=== PATIENT | male | born 1950 | race Caucasian/White ===

== ENCOUNTER 2016-10-23 09:23 | Day surgery (SDC) | payer BC ==
[2016-10-18 13:49] VITALS: BMI 29.7
[~2016-10-23 09:23] MED LIST: LACTATED RINGERS 1,000 ML IV SCH
[2016-10-23 09:45] VITALS: RESP 16; TEMP 97.1
[2016-10-23] MEDS ORDERED: LIDOCAINE 1% 20 ML VIAL (10MG/ML) FOR IV START INTRADERMA ONE (09:49)
[2016-10-23] MEDS ORDERED: PROPOFOL 10 MG/ML 20 ML VIAL IV ONE (10:19)
[2016-10-23] MEDS ORDERED: fentaNYL (PF) 50 MCG/ML 2 ML AMP ONE (10:19)
[2016-10-23] MEDS ORDERED: MIDAZOLAM 2 MG/2 ML VIAL ONE (10:19)
[2016-10-23 10:45] VITALS: PULSE 65
--- NOTE | 2016-10-23 10:51 | P.PCN ---
Date of Procedure: 10/23/16 Procedure(s) Performed: Procedure: Colonoscopy. Preoperative diagnosis: Screening for neoplasia, patient has history of polyps. Postoperative diagnosis: Exam within normal limits. Preparation: HalfLytely prep. Sedation: Was provided by anesthesia. Brief clinical history: The patient is a 66-year-old male who is scheduled for this evaluation for screening for neoplasia because of history of polyps. His last exam was around 6 years. He has no abdominal complaints, bleeding or anemia. Procedure: With the patient on his left lateral decubitus position and after informed consent and adequate sedation, the perianal area was inspected and it did not show any fissures or fistulas. There were no masses felt on digital rectal examination. The Olympus CFQ 160L video colonoscope was then inserted in the rectum in the usual fashion and advanced to the cecum. The mucosa appeared healthy. There may have been a small diverticular orifice in the distal sigmoid but there were no diverticulitis, polyps or cancer. I retroflexed endoscope in the rectum before the endoscope was withdrawn. The patient tolerated the procedure well. Plan: The patient was reassured. Discussed dietary measures. With the history of polyps, I recommended a repeat exam in 5 years. He will follow-up with you as planned.
[2016-10-23 11:02] VITALS: BP 121/61
== END 2016-10-23 11:27 | disposition home or self-care (01) ==
LOC: ORWHC2ENDO 09:23
DX: Z12.11 Encounter for screening for malignant neoplasm of colon (principal); Z86.010 Personal history of colon polyps; Z79.1 Long term (current) use of non-steroidal anti-inflammatories (NSAID); Z79.899 Other long term (current) drug therapy
CPT/HCPCS: J2250; J3010; J2704; G0105

== ENCOUNTER → 2022-10-04 | Day surgery (SDC) | payer MEDICARE, BC ==
[2022-10-02 14:27] VITALS: BMI 29.7
[~2022-10-04] MED LIST changes: +BALANCED SALT IRRIG SOLN COMB2 15 ML IRRIG.SOLN IRRIGATION ONE; +EPINEPHrine (PF) 0.3 ML in BALANCED SALT IRRIG SOLN COMB2 500 ML IRRIGATION ONE; +HYALURONATE SODIUM INTRAOCULAR 1 EACH SYRINGE (12MG/ML) INTRAOCULA ONE; +LIDOCAINE 1% (10MG/ML) FOR IV START INTRADERMA PRN; +LIDOCAINE 1% (PF) 10MG/ML VIAL MISCELLANE ONE; +MIDAZOLAM 2 MG/2 ML VIAL ONE; +TETRACAINE 0.5% OPHTH (PF) DROPS 4 ML BTL OP PRN; +fentaNYL (PF) 50 MCG/ML 2 ML AMP ONE
[2022-10-04] MEDS: CYCLOPENTOLATE 1% OPHTH SOLN 2 ML BTL OP PRN ×3 (08:12→08:24)
[2022-10-04] MEDS: PHENYLEPHRINE 2.5% OPHTH DRP 2ML OP PRN ×3 (08:15→08:27)
[2022-10-04 08:20] VITALS: TEMP 97.8
[2022-10-04] MEDS: TIMOLOL 0.5% OPHTH DROPS 5 ML BTL OP PRN ×2 (08:35→08:54)
[2022-10-04] MEDS: MOXIFLOXACIN HCL 0.5% DROPS 3 ML BTL OP PRN ×2 (08:35→08:54)
--- NOTE | 2022-10-04 09:18 | P.OP ---
Date of Procedure: 10/04/22 Preoperative Diagnosis: NS & CS Postoperative Diagnosis: same Procedure(s) Performed: PIOL< OD Implants: MX60E 16.50 Anesthesia: MAC Surgeon: Cabrera Barron Pathology: none sent Condition: stable Disposition: same day Indications for Procedure: blurry vision Operative Findings: no complications
[2022-10-04 10:02] VITALS: RESP 18
[2022-10-04 10:03] VITALS: BP 128/76; PULSE 69
--- NOTE | 2022-10-04 13:39 | OP ---
OPERATIVE REPORT DATE OF SERVICE : 10/04/2022 PREOPERATIVE DIAGNOSIS: Nuclear sclerosis, and cortical sclerosis. POSTOPERATIVE DIAGNOSIS: Nuclear sclerosis, and cortical sclerosis. OPERATION: Phacoemulsification of cataract and interocular lens implant of the right eye. ESTIMATED BLOOD LOSS: Zero. SPECIMEN TAKEN: None. NARRATIVE: After obtaining the appropriate consent, the patient was brought to the operating room where the patient was placed under cardiac monitoring and prepped and draped in the usual sterile manner. At the 11 o'clock position, a 15-degree super sharp blade was used to create a paracentesis followed by instillation of 1% Xylocaine MPF 50:50 mix with BSS into the anterior chamber. This was followed by Amvisc viscoelastic to stabilize the anterior chamber. At the 9 o'clock position a self-sealing corneal flap incision was created using 2.8 mm jennifer keratome. A cystotome was used to initiate a continuous tear capsulorrhexis which was completed with the Utrata forceps. A Binkhorst cannula was used to hydrodissect the lens nucleus followed by hydrodelineation. Phacoemulsification of the lens was performed utilizing phacochop in 10 seconds at 12% power. The remaining cortical material was removed using the irrigation aspiration mode followed by additional 1% Xylocaine MPF into the anterior chamber followed by viscoelastic to stabilize the capsular bag. A [employer] MX60E 16.5 diopters posterior chamber lens was placed into the capsular bag without difficulty. The remaining viscoelastic material was removed from the anterior chamber with the irrigation/aspiration. Balanced salt solution was used to normalize the intraocular pressure. The incision was checked for watertight integrity. The patient then received 2 drops of 0.5% timolol followed by 2 drops Vigamox, was lightly patched and shielded in the usual manner. There were no complications from the procedure. The patient tolerated the procedure well and was returned to recovery in good condition. MMODL / IJN: [id number] /
== END | disposition home or self-care (01) ==
LOC: OR 07:55
PROVIDERS: ATTEND Ophthalmology
DX: H25.11 Age-related nuclear cataract, right eye (principal); H25.011 Cortical age-related cataract, right eye; F10.20 Alcohol dependence, uncomplicated; Z87.891 Personal history of nicotine dependence; Z98.890 Other specified postprocedural states; Z83.511 Family history of glaucoma; Z83.518 Family history of other specified eye disorder; Z79.2 Long term (current) use of antibiotics; Z79.52 Long term (current) use of systemic steroids
CPT/HCPCS: 66984; V2632; J2250; J0171; J3010; J2001

== ENCOUNTER → 2022-10-25 | Day surgery (SDC) | payer MEDICARE, BC ==
[~2022-10-25] MED LIST changes: +BALANCED SALT IRRIG SOLN COMB2 15 ML IRRIG.SOLN INTRAOCULA ONE; -BALANCED SALT IRRIG SOLN COMB2 15 ML IRRIG.SOLN IRRIGATION ONE; +DUOVISC KIT (GREEN BOX) INTRAOCULA ONE; -HYALURONATE SODIUM INTRAOCULAR 1 EACH SYRINGE (12MG/ML) INTRAOCULA ONE; -LACTATED RINGERS 1,000 ML IV SCH; -LIDOCAINE 1% (10MG/ML) FOR IV START INTRADERMA PRN; +MOXIFLOXACIN HCL 0.5% DROPS 3 ML BTL OP PRN; +TIMOLOL 0.5% OPHTH DROPS 5 ML BTL OP PRN
[2022-10-25] MEDS: CYCLOPENTOLATE 1% OPHTH SOLN 2 ML BTL OP PRN ×3 (07:26→07:39)
[2022-10-25] MEDS: PHENYLEPHRINE 2.5% OPHTH DRP 2ML OP PRN ×3 (07:29→07:42)
[2022-10-25] MEDS: LACTATED RINGERS 1,000 ML IV SCH ×2 (07:41→08:01)
[2022-10-25 07:50] VITALS: TEMP 98
--- NOTE | 2022-10-25 08:30 | P.OP ---
Date of Procedure: 10/25/22 Preoperative Diagnosis: NS & CS Postoperative Diagnosis: same Procedure(s) Performed: PIOL, OS Implants: MX60E 18.00 Anesthesia: MAC Surgeon: Cabrera Barron Pathology: none sent Condition: stable Disposition: same day Indications for Procedure: blurry vision Operative Findings: No complications
[2022-10-25 09:19] VITALS: BP 128/74; PULSE 65; RESP 18
--- NOTE | 2022-10-25 14:19 | OP ---
OPERATIVE REPORT DATE OF SERVICE : 10/25/2022 PREOPERATIVE DIAGNOSIS: Nuclear sclerosis, cortical sclerosis, left eye. POSTOPERATIVE DIAGNOSIS: Nuclear sclerosis, cortical sclerosis, left eye. PROCEDURE PERFORMED: Phacoemulsification of cataract and intraocular lens implant of the left eye. ESTIMATED BLOOD LOSS: Zero. SPECIMEN TAKEN: None. NARRATIVE: After obtaining the appropriate consent, the patient was brought to the operating room where the patient was placed under cardiac monitoring and prepped and draped in the usual sterile manner. At the 5 o'clock position, a 15-degree super sharp blade was used to create a paracentesis followed by instillation of 1% Xylocaine MPF 50:50 mix with BSS into the anterior chamber. This was followed by DuoVisc viscoelastic to stabilize the anterior chamber. At the 3 o'clock position a self-sealing corneal flap incision was created using 2.8 mm jennifer keratome. A cystotome was used to initiate a continuous tear capsulorrhexis which was completed with the Utrata forceps. A Binkhorst cannula was used to hydrodissect the lens nucleus followed by hydrodelineation. Phacoemulsification of the lens was performed utilizing phacochop in 11.29 seconds at 13% power. The remaining cortical material was removed using the irrigation aspiration mode followed by additional 1% Xylocaine MPF into the anterior chamber followed by viscoelastic to stabilize the capsular bag. A [employer] Lomb MX60E 18 diopters posterior chamber lens was placed into the capsular bag without difficulty. The remaining viscoelastic material was removed from the anterior chamber with the irrigation/aspiration. Balanced salt solution was used to normalize the intraocular pressure. The incision was checked for watertight integrity. The patient then received 2 drops of 0.5% timolol followed by 2 drops Vigamox, was lightly patched and shielded in the usual manner. There were no complications from the procedure. The patient tolerated the procedure well and was returned to recovery in good condition. MMODL / IJN: [id number] /
== END | disposition home or self-care (01) ==
LOC: OR 06:44
PROVIDERS: ATTEND Ophthalmology
DX: H25.12 Age-related nuclear cataract, left eye (principal); K21.9 Gastro-esophageal reflux disease without esophagitis; Z79.899 Other long term (current) drug therapy
CPT/HCPCS: 66984; C1780; J2250; J0171; J3010; J2001